=== PATIENT | female | born 1975 | race American Indian/Alaskan Native ===

== ENCOUNTER 2016-09-10 22:14 | Emergency (ER) | payer SELFPAY ==
[2016-09-10 23:15] VITALS: BP 149/96
[2016-09-11] MEDS ORDERED: VALIUM IV ONE (01:01)
[2016-09-11] MEDS ORDERED: MOTRIN PO ONE (01:01)
--- NOTE | 2016-09-11 01:15 | Emergency Department Report ---
HPI - General Chief Complaint: Skin/Abscess/Foreign Body Time Seen by Provider: 09/11/16 00:41 - HPI HPI: Patient is a 41-year-old female with a history of hidradenitis supervision presents ED complaining of right swelling and pain in her arm. 1 week. Patient states bump has gone slightly pale and symptoms tender to touch. She states she got a mild fever and decided to come in She denies any nausea vomiting abdominal pain chest pain or any other problems ED Past Medical Hx - Past Medical History Previous Medical History?: Yes Hx Hypertension: Yes Hx Diabetes: Yes - Surgical History Past Surgical History?: Yes Additional Surgical History: Gastric Sleeve. Breast Reduction - Social History Smoking Status: Current Every Day Smoker Substance Use Type: None - Medications Home Medications: Home Medications Medication Instructions Recorded Confirmed Last Taken Type Amoxicillin/K Clav Tab [Augmentin 1 tab PO Q12HR #12 tab 09/11/16 Unknown Rx 875 mg] Cyclobenzaprine [Flexeril] 10 mg PO TID PRN #24 tablet 09/11/16 Unknown Rx Ibuprofen [Motrin] 800 mg PO Q8HR PRN #30 tablet 09/11/16 Unknown Rx predniSONE [Deltasone] 10 mg PO .TAPER #21 tab 09/11/16 Unknown Rx ED Review of Systems ROS: Stated complaint: ABSCESS UNDER RT ARM/FEVER Other details as noted in HPI Constitutional: denies: chills, fever Eyes: denies: eye pain, eye discharge, vision change ENT: denies: ear pain, throat pain Respiratory: denies: cough, shortness of breath, wheezing Cardiovascular: denies: chest pain, palpitations Endocrine: no symptoms reported Gastrointestinal: denies: abdominal pain, nausea, diarrhea Genitourinary: denies: urgency, dysuria, discharge Musculoskeletal: denies: back pain, joint swelling, arthralgia Skin: denies: rash, lesions Neurological: denies: headache, weakness, paresthesias Psychiatric: denies: anxiety, depression Hematological/Lymphatic: denies: easy bleeding, easy bruising Physical Exam - Physical Exam Vital Signs: Vital Signs 09/10/16 22:20 Temperature 99.3 F Pulse Rate 101 H Respiratory 16 Rate Blood Pressure 149/96 [Right] O2 Sat by Pulse 100 Oximetry Physical Exam: GENERAL: Alert and oriented x3, no apparent distress, Normal Gait, atraumatic. HEAD: Head is normocephalic and a-traumatic. EYES: Extra ocular muscles are intact. Pupils are equal, round, and reactive to light and accommodation. NECK: Supple. Non edematous, No carotid bruits. No lymphadenopathy or thyromegaly. No C-spine tenderness LUNGS: Symetrical with respiration, No wheezing, no rales or crackles, CTAB. HEART: S1, S2 present, regular rate and rhythm without murmur, no rubs, no gallops. Non tender to palpation AXILLA: Bilateral viral life lesions seen in both armpits. Right armpit shows4- 5 centimeter in diameter fluctuant, erythematous, tender to palpation mass SKIN: Warm and dry, No other lesions, No ulceration or induration present. ED Course Vital Signs 09/10/16 22:20 Temperature 99.3 F Pulse Rate 101 H Respiratory 16 Rate Blood Pressure 149/96 [Right] O2 Sat by Pulse 100 Oximetry - I & D Right Arm Type of Procedure: Simple Site: right axilla Blade Size: 11 I & D Procedure: betadine prep, sterile drapes applied, sterile dressing applied , gauze wick placed Progress: See note in MDM ED Medical Decision Making - Medical Decision Making 41-year-old female presents with abscess of the right axilla ED course: She received Valium/Motrin/Tylenol with codeine in ED for pain. Patient positioned appropriately, 10cc lidocaine with/without epinephrine was used as a local anesthetic. #11 blade scalpal used for single incision. Additional local anesthetic injected into surrounding viable tissue prior to blunt dissection of loculated adhesions. Copius drainage of pus. Wound packed with iodoform gauze. Procedure tolerated without complications. Wound dressed with sterile 4x4 guaze and paper tape. Pt tolerated procedure well. Discussed with patient to return to the ED 3 days for wound check and gauze removal Vital signs are normal patient is not acute distress Critical care attestation.: If time is entered above; I have spent that time in minutes in the direct care of this critically ill patient, excluding procedure time. ED Disposition Clinical Impression: Axillary adenitis, Hidradenitis axillaris Disposition: - TO HOME OR SELFCARE Is pt being admited?: No Does the pt Need Aspirin: No Condition: Stable Instructions: Adenitis (ED) Prescriptions: Amoxicillin/K Clav Tab [Augmentin 875 mg] 1 tab PO Q12HR #12 tab Cyclobenzaprine [Flexeril] 10 mg PO TID PRN #24 tablet PRN Reason: Muscle Spasm Ibuprofen [Motrin] 800 mg PO Q8HR PRN #30 tablet PRN Reason: Pain predniSONE [Deltasone] 10 mg PO .TAPER #21 tab Referrals: PRIMARY MD AMADOU [Primary Care Provider] - 3-5 Days GERTRUDIS JIMENEZ MD [Referring] - 3-5 Days [facility] [Outside] - 3-5 Days Forms: Accompanied Note, Work/School Release Form(ED) Time of Disposition: 01:34
[2016-09-11] MEDS ORDERED: AUGMENTIN 875 MG PO ONE (01:16)
[2016-09-11] MEDS: VALIUM IM ONE ×2 (01:24→01:26)
== END 2016-09-11 02:30 | disposition home or self-care (01) ==
LOC: ED 22:14
DX: I88.9 Nonspecific lymphadenitis, unspecified (principal); L73.2 Hidradenitis suppurativa; I10 Essential (primary) hypertension; E11.9 Type 2 diabetes mellitus without complications; F17.210 Nicotine dependence, cigarettes, uncomplicated
CPT/HCPCS: 10060; 96372; 99282; J3360

== ENCOUNTER 2016-09-29 10:10 | Emergency (ER) | payer SELFPAY ==
[2016-09-29 10:34] VITALS: BP 140/91
--- NOTE | 2016-09-29 11:05 | Emergency Department Report ---
Entered by BIANKA JIMÉNEZ, acting as scribe for SHARON NARANJO PA. Chief Complaint: Hyperglycemia Stated Complaint: BLOOD SUGAR HIGH Time Seen by Provider: 09/29/16 10:49 - HPI History of Present Illness: 41 y/o female with Hx of DM, HTN, high cholesterol, gastric sleeve, and nontoxic , well nourished in appearance, no acute signs of distress presents with hyperglycemia episode with a sugar of 369 that occurred today. Sx include n/d, vaginal itching secondary to hyperglycemia but pt denies vaginal d/c. Medication includes Metformin 500 mg ER 2 tabs once a day. Pt states she is unable to afford [id number]. Pt notes having multiple allergies and denies having a PCP. - ROS Review of Systems: Sx include n/d, vaginal itching secondary to hyperglycemia but pt denies vaginal d/c. all other systems are reviewed and negative unless noted. - Exam Vital Signs: Vital Signs 09/29/16 10:31 Temperature 98.1 F Pulse Rate 119 H Respiratory 18 Rate Blood Pressure 140/91 O2 Sat by Pulse 97 Oximetry Vital Signs 09/29/16 09/29/16 10:31 11:04 Temperature 98.1 F Pulse Rate 119 H 98 H Respiratory 18 Rate Blood Pressure 140/91 O2 Sat by Pulse 97 Oximetry Physical Exam: Head: Normocephalic, atraumatic Abdomen: Soft, nontender to palpation in all quadrants, normal bowel sounds in all quadrants and negative CVA tenderness bilaterally. Lungs: Clear to auscultation bilaterally, no rhonchi, wheezes, or rales. Normal work of breathing. No use of accessory muscles CV: tacchycardia, S1S2 MSE screening note: Focused history and physical exam performed. Due to findings the following was ordered: see MDM ED Medical Decision Making - Medical Decision Making Appropriate screening provided to pt by provider in MSE, appropriate protocol implemented. To be seen by provider in fast track ED Disposition for MSE Condition: Stable This documentation as recorded by the scribe,BIANKA JIMÉNEZ,accurately reflects the service I personally performed and the decisions made by me,SHARON NARANJO PA.
[2016-09-29 11:35] LABS: Basophils % (Auto) 1.1 % (0.0-1.8); Eosinophils % (Auto) 0.6 % (0.0-4.3); Hematocrit 39.9 % (30.3-42.9); Hemoglobin 13.1 gm/dl (10.1-14.3); Mean Corpuscular HGB Conc 33 % (30-34); Mean Corpuscular Hemoglobin 29 pg (28-32); Mean Corpuscular Volume 88 fl (79-97); Platelet Count 316 K/mm3 (140-440); Red Blood Count 4.53 M/mm3 (3.65-5.03); Red Cell Distribution Width 14.9 % (13.2-15.2); White Blood Count 8.7 K/mm3 (4.5-11.0)
[2016-09-29 11:46] LABS: Anion Gap 19 mmol/L; BUN/Creatinine Ratio 11.66; Blood Urea Nitrogen 7 mg/dL (7-17); Calcium 9.3 mg/dL (8.4-10.2); Carbon Dioxide 24 mmol/L (22-30); Chloride 94.6 mmol/L (98-107); Glucose 345 mg/dL (65-100); Potassium 3.9 mmol/L (3.6-5.0); Sodium 134 mmol/L (137-145)
[2016-09-29 12:06] LABS: Bilirubin,Urine NEG (Negative); Blood,Urine NEG (Negative); Ketones,Urine NEG (Negative); Leukocyte Esterase,Urine NEG (Negative); Mucus,Urine FEW /HPF; Nitrite,Urine NEG (Negative); Protein,Urine <15 mg/dL mg/dL (Negative); RBC,Urine < 1.0 /HPF (0.0-6.0); Urobilinogen,Urine < 2.0 mg/dL (<2.0)
== END 2016-09-29 16:58 | disposition left against medical advice (07) ==
LOC: ED 10:10
DX: R73.9 Hyperglycemia, unspecified (principal); Z53.21 Procedure and treatment not carried out due to patient leaving prior to being seen by health care provider
CPT/HCPCS: 36415; 80048; 81001; 82805; 82962; 84703; 85025